=== PATIENT | male | born 1975 | race Caucasian/White ===

== ENCOUNTER 2023-06-19 23:18 | Emergency (ER) | payer MEDICAID ==
[~2023-06-19] VITALS: Ht 172.7 cm; Wt 75.0 kg
[2023-06-19 23:57] VITALS: O2SAT 100
[2023-06-20] MEDS ORDERED: BACITRACIN ZINC OINT UDPKT TOP ONE
[2023-06-20] MEDS ORDERED: AMOXICILLIN/POTASSIUM CLAVULANATE 875/125MG TAB PO ONE
[2023-06-20] MEDS ORDERED: TETANUS, DIPHTHERIA, PERTUSSIS VAC/PF 0.5ML (>10YR OLD) IM ONE
[2023-06-20] MEDS ORDERED: LIDOCAINE HCL/PF 1% 10 MG/ML 5ML VIAL INFIL ONE
[2023-06-20] MEDS ORDERED: HYDROCODONE/ACETAMINOPHEN 5/325MG TABLET PO ONE
[2023-06-20 02:30] VITALS: BP 122/84; PULSE 89; RESP 18; TEMP 98.1
[2023-06-20] MEDS ORDERED: AMOX1TAB16 MT (02:37)
[2023-06-20] MEDS ORDERED: ACET-2708 MT (02:37)
[2023-06-20] MEDS ORDERED: NAPR-681 MT (02:37)
== END 2023-06-20 02:30 | disposition home or self-care (01) ==
LOC: ER 23:18
DX: S51.811A Laceration without foreign body of right forearm, initial encounter (principal); W54.0XXA Bitten by dog, initial encounter; Y93.89 Activity, other specified; Y92.89 Other specified places as the place of occurrence of the external cause; Y99.8 Other external cause status
CPT/HCPCS: 12002; 99283; 73090; J3490; Z7610; 12001; 12004; 90715